=== PATIENT | male | born 1980 | race Hispanic/Latino ===

== ENCOUNTER 2023-09-21 08:46 | Inpatient (IN) | payer SELFPAY ==
[2023-09-21] MEDS ORDERED: Ketorolac Tromethamine 30 MG (1 mL) VIAL ONE (10:17)
[2023-09-21] MEDS ORDERED: Acetaminophen 325 MG TAB PO PRN (14:15)
[2023-09-21] MEDS ORDERED: Ondansetron ODT 4 MG TAB SL PRN (14:15)
[2023-09-21] MEDS ORDERED: Ondansetron PF 4 MG/2 ML Vial IVP PRN (14:15)
[2023-09-21] MEDS ORDERED: CEFAZOLIN 2 GM in Sodium Chloride 0.9% 100 ML IVPB SCH (14:30)
[2023-09-21] MEDS ORDERED: traMADol HCl 50 MG TAB PO PRN ×2 (15:53→16:48)
[2023-09-21] MEDS ORDERED: Morphine 2 MG/ML VIAL SLOW IVP PRN (16:48)
[2023-09-21] MEDS ORDERED: Ibuprofen 600 MG TAB PO PRN (16:48)
[2023-09-21] MEDS ORDERED: Cyclobenzaprine 10 MG TAB PO PRN (16:48)
[2023-09-21 18:01] VITALS: BMI 35.4
[2023-09-21] MEDS: Sodium Chloride 0.9% 1,000 ML IV SCH (19:17)
[2023-09-21] MEDS: traMADol HCl 50 MG TAB PO SCH (19:18)
[2023-09-21] MEDS: Famotidine 20 MG TAB PO SCH (20:14)
[2023-09-21] MEDS: Senokot S 8.6-50 MG TAB PO SCH (20:14)
[2023-09-22 06:25] LABS: #Basophils Less than 0.03 10x3/uL (0.0-0.2); %Basophils 0.3 % (0.0-1.0); %Eosinophils 3.2 % (0.0-10.0); %Lymphocytes 21.3 % (21.0-51.0); %Monocytes 12.6 % (0.0-10.0); %Neutrophils 62.1 % (42.0-75.0); Hematocrit 44.1 % (42.0-52.0); Hemoglobin 15.3 g/dL (14.0-18.0); Mean Corpuscular HGB CONC 34.7 g/dL (32.0-36.0); Mean Corpuscular Hemoglobin 27.6 pg (27.0-31.0); Mean Corpuscular Volume 79.5 fL (78.0-98.0); Mean Platelet Volume 9.4 fL (7.4-10.4); Platelet Count 170 10x3/uL (130-400); RBC Distribution Width 13.4 % (11.5-14.5); Red Blood Cell (RBC) Count 5.55 mill/uL (4.70-6.10)
[2023-09-22 06:26] LABS: Anion Gap 19 mmol/L (10-20); BUN (Urea Nitrogen) 17 mg/dL (8.9-20.6); Calc. Creatinine Clearance 133 mL/min (70-130); Calcium 9.4 mg/dL (7.8-10.44); Carbon Dioxide 15 mmol/L (22-29); Chloride 109 mmol/L (98-107); Estimated GFR 104; Glucose 97 mg/dL (70-105); Potassium 4.6 mmol/L (3.5-5.1); Sodium 138 mmol/L (136-145)
[2023-09-22 15:16] LABS: Anion Gap 14 mmol/L (10-20); BUN (Urea Nitrogen) 17 mg/dL (8.9-20.6); Calc. Creatinine Clearance 119 mL/min (70-130); Calcium 9.1 mg/dL (7.8-10.44); Carbon Dioxide 23 mmol/L (22-29); Chloride 106 mmol/L (98-107); Estimated GFR 91; Glucose 105 mg/dL (70-105); Potassium 3.8 mmol/L (3.5-5.1); Sodium 139 mmol/L (136-145)
[2023-09-22 16:45] LABS: Actual Bicarbonate (HCO3a) 21.7 mEq/L (22-28); Base Excess (BEa) -1.9 mEq/L (-2.0 to +3.0); Calcium, Ionized (arterial) 1.17 mmol/L (1.12-1.30); Carboxyhemoglobin (COHb) 0.8 gm% (0.0-3.0); Hematocrit-ABG 46 % (42.0-52.0); Hemoglobin (Hb) 15.6 g/dL (14.0-18.0); O2 Tension (PaO2), arterial 70.6 mmHg (80.0-100.0); Potassium - ABG Lab 3.71 mmol/L (3.70-5.30); pH, Arterial 7.422 (7.35-7.45)
[2023-09-22 16:47] LABS: Puncture Site LRA
[2023-09-22 19:53] LABS: #Basophils Less than 0.03 10x3/uL (0.0-0.2); %Basophils 0.3 % (0.0-1.0); %Eosinophils 3.1 % (0.0-10.0); %Lymphocytes 29.8 % (21.0-51.0); %Monocytes 11.3 % (0.0-10.0); %Neutrophils 55.3 % (42.0-75.0); Hematocrit 47.2 % (42.0-52.0); Mean Corpuscular HGB CONC 33.9 g/dL (32.0-36.0); Mean Corpuscular Hemoglobin 27.5 pg (27.0-31.0); Mean Corpuscular Volume 81.1 fL (78.0-98.0); Mean Platelet Volume 9.3 fL (7.4-10.4); Platelet Count 177 10x3/uL (130-400); RBC Distribution Width 13.7 % (11.5-14.5); Red Blood Cell (RBC) Count 5.82 mill/uL (4.70-6.10)
[2023-09-22] MEDS: Sodium Chloride 0.9% 500 ML IV SCH (21:04)
[2023-09-22] MEDS ORDERED: hydrOXYzine Pamoate 25 mg Capsule PO PRN (21:23)
[2023-09-22] MEDS ORDERED: Calcium Carbonate 500 MG ChewTAB PO PRN (21:25)
[2023-09-22] MEDS: Melatonin 3 MG TAB PO SCH (21:36)
[2023-09-22 22:47] LABS: Lactic Acid 1.6 mmol/L (0.5-2.2)
[2023-09-23 05:49] LABS: Bilirubin Negative (Negative); Blood, Urine Negative (Negative); Glucose, Urine (Dipstick) Negative (Negative); Ketone, Urine Negative (Negative); Leukocyte Trace (Negative); Nitrite Negative (Negative); Protein, Urine (Dipstick) Negative (Neg-Trace); Urobilinogen 0.2 mg/dL (Less than 2)
[2023-09-23 05:52] LABS: RBC/HPF 0-3 HPF (0-3); Squamous Epithelial 0-3 HPF (0-3)
[2023-09-23 05:53] LABS: Bacteria/HPF 1+ HPF (None Seen); Clarity Clear (Clear)
[2023-09-23 06:10] LABS: Anion Gap 15 mmol/L (10-20); BUN (Urea Nitrogen) 18 mg/dL (8.9-20.6); Calc. Creatinine Clearance 120 mL/min (70-130); Calcium 8.8 mg/dL (7.8-10.44); Carbon Dioxide 22 mmol/L (22-29); Chloride 107 mmol/L (98-107); Estimated GFR 93; Glucose 97 mg/dL (70-105); Potassium 3.9 mmol/L (3.5-5.1); Sodium 140 mmol/L (136-145)
[2023-09-23] MEDS ORDERED: Bacitracin Zinc Ointment 30 gm TUBE ONE (07:43)
[2023-09-23] MEDS ORDERED: Bupivacaine PF 0.5% 30 ML VIAL ONE (07:43)
[2023-09-23] MEDS ORDERED: PROPOFOL 20 ML ONE (07:49)
[2023-09-23] MEDS ORDERED: fentaNYL PF 100 MCG/2 ML SYRINGE ONE ×2 (07:49→12:07)
[2023-09-23] MEDS ORDERED: Rocuronium Bromide 10 MG/ML (10ML VIAL) ONE (07:49)
[2023-09-23] MEDS ORDERED: Midazolam HCl 2 mg/2 ml Vial ONE (07:50)
[2023-09-23] MEDS ORDERED: CEFAZOLIN 2 GM VIAL ONE (07:55)
[2023-09-23] MEDS ORDERED: Sodium Chloride 0.9% 100 ML ONE (07:55)
[2023-09-23] MEDS ORDERED: Lidocaine 1% PF 5 ML VIAL ONE (08:30)
[2023-09-23] MEDS ORDERED: NEOSTIGMINE 3 MG/3 ML SYR 3 MG/3 ML SYRINGE ONE (09:10)
[2023-09-23] MEDS ORDERED: Ondansetron PF 4 MG/2 ML Vial ONE (09:10)
[2023-09-23] MEDS ORDERED: Glycopyrrolate 0.2 MG/ML 5 ML SYRINGE ONE (09:10)
[2023-09-23] MEDS ORDERED: fentaNYL 50 mcg/mL 1 mL Vial ONE (09:22)
[2023-09-23] MEDS ORDERED: HYDROmorphone 0.5 MG/0.5 ML SYRINGE ONE (11:39)
[2023-09-23] MEDS ORDERED: Ketorolac Tromethamine 30 MG (1 mL) VIAL ONE (11:58)
[2023-09-23] MEDS ORDERED: Morphine 4 MG/ML VIAL SLOW IVP PRN (11:59)
[2023-09-23] MEDS ORDERED: HYDROcodone/Acetaminophen 7.5/325 mg Tablet PO PRN (12:00)
[2023-09-23] MEDS: Ketorolac Tromethamine 30 MG (1 mL) VIAL IVP SCH ×2 (12:19→20:12)
[2023-09-23] MEDS: CEFAZOLIN 1 GM in Sodium Chloride 0.9% 100 ML IVPB SCH (13:41)
[2023-09-24] MEDS: CEFAZOLIN 1 GM VIAL ONE (09:30)
[2023-09-25 07:39] VITALS: TEMP 98
[2023-09-25 11:42] VITALS: BP 124/74
[2023-09-25] MEDS: Acetaminophen 325 MG TAB PO SCH (12:48)
[2023-09-25] MEDS ORDERED: Morphine 4 MG/ML VIAL SLOW IVP PRN (13:51)
[2023-09-25] MEDS: Cephalexin 250 MG CAP PO SCH (14:37)
[2023-09-25] MEDS ORDERED: Ketorolac Tromethamine 30 MG (1 mL) VIAL IVP SCH (18:00)
== END 2023-09-25 14:39 | disposition home or self-care (01) | DRG 502 ==
LOC: ERS 08:46 → SURG A 14:19
PROVIDERS: ADMIT Specialist; ATTEND Specialist
PROC: 0PSH04Z Reposition Right Radius with Internal Fixation Device, Open Approach (ICD-10-PCS; principal; 2023-09-23)
PROC: 0MQ50ZZ Repair Right Wrist Bursa and Ligament, Open Approach (ICD-10-PCS; 2023-09-23)
DX: S52.571A Other intraarticular fracture of lower end of right radius, initial encounter for closed fracture (principal); I10 Essential (primary) hypertension; W11.XXXA Fall on and from ladder, initial encounter; Z79.899 Other long term (current) drug therapy; Y93.89 Activity, other specified; Y92.89 Other specified places as the place of occurrence of the external cause
CPT/HCPCS: 36415; 36600; 80048; 81001; 82805; 83605; 85025; C1713; J0665; J0690; J1170; J1885; J2250; J2405; J2704; J3010; J3490; J7030; J7050